=== PATIENT | female | born 1980 | race Caucasian/White ===

== ENCOUNTER → 2016-10-23 | Outpatient (CLI) | payer OTHER ==
--- NOTE | 2016-10-24 13:26 | RAD ---
Bilateral hands, 6 views, 10/23/2016: History: Polyarthralgia No recent fracture or dislocation is identified. There is mild cortical thickening along the shaft of the right fifth metacarpal compatible with an old healed fracture. No significant arthritic changes are seen. The soft tissues are unremarkable. IMPRESSION: No significant abnormality is detected.
== END | disposition home or self-care (01) ==
LOC: DXRADRC 14:50
PROVIDERS: ATTEND Internal Medicine Rheumatology
DX: M25.542 Pain in joints of left hand (principal); M25.541 Pain in joints of right hand
CPT/HCPCS: 73130

== ENCOUNTER → 2016-12-08 | Outpatient (CLI) | payer OTHER ==
--- NOTE | 2016-12-08 10:42 | RAD ---
Indication knee pain. Fall several months ago. AP oblique and lateral views of both knees were obtained. Views of the right knee appear normal. No acute finding is seen. There are no significant degenerative changes on plain films. No significant joint fluid is suggested. Views of the left knee also appear unremarkable. No bony abnormality is seen. IMPRESSION: Normal plain films of the knees
== END | disposition home or self-care (01) ==
LOC: DXRADRC 10:23
PROVIDERS: ATTEND Physician Assistant Medical
DX: M25.561 Pain in right knee (principal); M25.562 Pain in left knee; W19.XXXD Unspecified fall, subsequent encounter
CPT/HCPCS: 73562

== ENCOUNTER → 2017-12-04 | Outpatient (CLI) | payer OTHER ==
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
== END | disposition home or self-care (01) ==
LOC: PMG 16:09
PROVIDERS: ATTEND Physician Assistant Medical
DX: M53.82 Other specified dorsopathies, cervical region (principal); M50.33 Other cervical disc degeneration, cervicothoracic region; Y92.410 Unspecified street and highway as the place of occurrence of the external cause
CPT/HCPCS: 72050